=== PATIENT | female | born 1940 ===

== ENCOUNTER 2017-07-20 17:06 | Inpatient (IN) | payer MEDICARE, BC ==
[~2017-07-20] VITALS: Ht 160 cm; Wt 55.7 kg
[2017-07-20] VITALS (302 sets, daily range): BP systolic 125–134; BP diastolic 61–87; PULSE 92–106; TEMP 97.7–99.9; O2SAT 51–100
[2017-07-20] MEDS ORDERED: LANOXIN 0.120.125 MG PO (18:20)
[2017-07-20] MEDS ORDERED: ASPI325T6 PO (18:21)
[2017-07-20] MEDS ORDERED: LIPITOR 10MG10 MG PO (18:24)
[2017-07-20] MEDS ORDERED: FOLIC ACID 11 MG/TA1 PO (18:24)
[2017-07-20] MEDS ORDERED: COREG 25MG25 MG/TAB PO (18:26)
[2017-07-20] MEDS ORDERED: VENTOLIN0.09 MG IH (18:27)
[2017-07-20] MEDS ORDERED: TYLENOL 325MG325 MG PO (18:27)
[2017-07-20] MEDS ORDERED: PRILOSEC 20MG20 MG PO (18:28)
[2017-07-20] MEDS ORDERED: PLAVIX 75MG TAB75 MG PO (18:28)
[2017-07-20] MEDS ORDERED: ANTIVERT 25MG25 MG PO (18:29)
[2017-07-20] MEDS ORDERED: PULMICORT0.5 MG/2 M IH (18:30)
[2017-07-20] MEDS ORDERED: BROVANA15 MCG/2 M IH (18:35)
[2017-07-20] MEDS ORDERED: METHOTREXA2.5 MG/TAB PO (18:37)
[2017-07-21] VITALS (1000 sets, daily range): BP systolic 104–144; BP diastolic 55–92; PULSE 70–98; TEMP 96.7–99.6; O2SAT 31–100
[2017-07-21 07:19] LABS: ADD PATHOLOGY DIFF REVIEW NO; HEMATOCRIT 32.9 % (37.0-47.0); MEAN CELL VOLUME 86 fl (80.0-100.0); MEAN CORPUSCULAR HEMOGLOBIN 26 pg (27.0-31.0); MEAN CORPUSCULAR HGB CONC 30 g/dl (33.0-37.0); MEAN PLATELET VOLUME 9.4 fl (7.4-10.4); PLATELET COUNT 202 K/mm3 (130-400); RED BLOOD COUNT 3.83 M/mm3 (4.10-5.30); WHITE BLOOD COUNT 10.6 K/mm3 (4.8-10.8)
[2017-07-21 07:27] LABS: ALBUMIN 2.5 gm/dL (3.5-5.0); BILIRUBIN,TOTAL 0.4 mg/dL (0.0-1.0); CALCIUM 7.8 mg/dL (8.4-10.2); CREATININE, serum 0.74 mg/dL (0.52-1.25); POTASSIUM 4.3 mmol/L (3.4-5.0); TOTAL PROTEIN 4.9 gm/dL (6.4-8.2)
[2017-07-21 08:06] LABS: BAND 39 % (0-10); LYMPHOCYTE 3 % (20.0-51.0); NEUTROPHILS 50 % (42.0-75.2); PLATELET ESTIMATE NORMAL (NORMAL); TOTAL CELLS COUNTED 100
[2017-07-22] VITALS (501 sets, daily range): BP systolic 118–144; BP diastolic 63–75; PULSE 72–77; TEMP 96.7–97.7; O2SAT 88–100
[2017-07-22 05:37] LABS: ADD PATHOLOGY DIFF REVIEW NO
[2017-07-22 05:39] LABS: MEAN CELL VOLUME 85 fl (80.0-100.0); MEAN CORPUSCULAR HGB CONC 31 g/dl (33.0-37.0); MEAN PLATELET VOLUME 9.6 fl (7.4-10.4); PLATELET COUNT 189 K/mm3 (130-400); RED BLOOD COUNT 3.55 M/mm3 (4.10-5.30); WHITE BLOOD COUNT 6.6 K/mm3 (4.8-10.8)
[2017-07-22 05:41] LABS: HEMATOCRIT 30.3 % (37.0-47.0); HEMOGLOBIN 9.3 g/dl (12.5-16.0); MEAN CORPUSCULAR HEMOGLOBIN 26 pg (27.0-31.0)
[2017-07-22 05:50] LABS: ADJUSTED CALCIUM 9.2 mg/dL (8.4-10.2); ALBUMIN 2.4 gm/dL (3.5-5.0); BILIRUBIN,TOTAL 0.2 mg/dL (0.0-1.0); CALCIUM 7.9 mg/dL (8.4-10.2); CREATININE, serum 0.57 mg/dL (0.52-1.25); TOTAL PROTEIN 4.7 gm/dL (6.4-8.2)
[2017-07-22 08:18] LABS: BAND 14 % (0-10); LYMPHOCYTE 11 % (20.0-51.0); METAMYELOCYTE 2 % (0-0); NEUTROPHILS 72 % (42.0-75.2); PLATELET ESTIMATE NORMAL (NORMAL); TOTAL CELLS COUNTED 100
[2017-07-23 01:08] VITALS: BP 136/81; PULSE 77; TEMP 97.9
[2017-07-23 05:47] VITALS: BP 137/68; PULSE 76; TEMP 97.7
[2017-07-23 09:34] VITALS: BP 139/74; PULSE 74; TEMP 97.8
[2017-07-23 14:02] VITALS: BP 156/65; PULSE 76; TEMP 97.6
[2017-07-23 17:49] VITALS: BP 153/67; PULSE 77; TEMP 97.6
[2017-07-23 22:28] VITALS: BP 168/78; PULSE 81; TEMP 99.3
[2017-07-24 02:17] VITALS: BP 131/87; PULSE 81; TEMP 98.5
[2017-07-24 05:28] VITALS: BP 152/70; PULSE 71; TEMP 98.4
[2017-07-24 10:03] VITALS: BP 132/61; PULSE 74; TEMP 98.2
[2017-07-24 14:14] VITALS: BP 119/59; PULSE 79; TEMP 97.9
[2017-07-24 18:16] VITALS: BP 149/66; PULSE 82; TEMP 98.5
[2017-07-24 22:15] VITALS: BP 132/66; PULSE 81; TEMP 97.5
[2017-07-25 01:55] VITALS: BP 153/72; PULSE 74; TEMP 97.5
[2017-07-25 06:06] VITALS: BP 150/75; PULSE 76; TEMP 97.6
[2017-07-25 06:11] LABS: MEAN CELL VOLUME 85 fl (80.0-100.0); MEAN CORPUSCULAR HGB CONC 31 g/dl (33.0-37.0); MEAN PLATELET VOLUME 9.7 fl (7.4-10.4); PLATELET COUNT 245 K/mm3 (130-400); RED BLOOD COUNT 3.68 M/mm3 (4.10-5.30); WHITE BLOOD COUNT 9.1 K/mm3 (4.8-10.8)
[2017-07-25 06:14] LABS: HEMATOCRIT 31.3 % (37.0-47.0); HEMOGLOBIN 9.7 g/dl (12.5-16.0); MEAN CORPUSCULAR HEMOGLOBIN 26 pg (27.0-31.0)
[2017-07-25 06:15] LABS: ADD PATHOLOGY DIFF REVIEW NO
[2017-07-25 06:35] LABS: BAND 4 % (0-10); HYPERSEGMENTED POLYS PRESENT; LYMPHOCYTE 23 % (20.0-51.0); METAMYELOCYTE 3 % (0-0); NEUTROPHILS 60 % (42.0-75.2); PLATELET ESTIMATE NORMAL (NORMAL); TOTAL CELLS COUNTED 100
[2017-07-25 06:36] LABS: HYPOCHROMIA 1+
[2017-07-25 09:55] VITALS: BP 142/63; PULSE 78; TEMP 98.2
[2017-07-25 14:11] VITALS: BP 135/84; PULSE 90; TEMP 98.2
[2017-07-25 17:35] VITALS: BP 160/53; PULSE 90; TEMP 98.7
[2017-07-25 22:46] VITALS: BP 139/60; PULSE 79; TEMP 97.7
[2017-07-26 06:03] VITALS: BP 148/72; PULSE 78; TEMP 97.5
[2017-07-26 11:25] VITALS: BP 114/56; PULSE 84; TEMP 96.8
[2017-07-26 13:29] VITALS: BP 119/67; PULSE 82; TEMP 97.8
[2017-07-26 16:52] VITALS: BP 112/67; PULSE 89; TEMP 97.8
[2017-07-26 22:15] VITALS: BP 129/64; PULSE 80; TEMP 97.9
[2017-07-27 06:43] VITALS: BP 159/64; PULSE 75; TEMP 97.8
[2017-07-27 10:02] VITALS: BP 145/71; PULSE 98; TEMP 97.8
== END 2017-07-27 12:45 | disposition home or self-care (01) | DRG 871 ==
LOC: SURG 17:06 → ICU 17:58 → SURG 07-22 14:57
PROVIDERS: Surgery
PROC: 0W9H30Z Drainage of Retroperitoneum with Drainage Device, Percutaneous Approach (ICD-10-PCS; principal; 2017-07-21)
DX: A41.9 Sepsis, unspecified organism (principal); K63.1 Perforation of intestine (nontraumatic); K63.0 Abscess of intestine; E87.1 Hypo-osmolality and hyponatremia; E44.0 Moderate protein-calorie malnutrition; I25.10 Atherosclerotic heart disease of native coronary artery without angina pectoris; I10 Essential (primary) hypertension; Z95.5 Presence of coronary angioplasty implant and graft; Z87.891 Personal history of nicotine dependence; J44.9 Chronic obstructive pulmonary disease, unspecified; M06.9 Rheumatoid arthritis, unspecified; I08.3 Combined rheumatic disorders of mitral, aortic and tricuspid valves
CPT/HCPCS: 99223; 99233-AI; A4217; A9284; C1729; C1751; C9113; J0610; J1170; J1644; J1650; J1720; J1815; J1956; J2250; J2405; J3010; J3475; J3480; J7131; Q9967